=== PATIENT | male | born 1980 | race Caucasian/White ===

== ENCOUNTER → 2024-09-06 11:00 | Outpatient (REF) | payer OTHER, SELFPAY ==
[2024-09-08 11:39] LABS: Quantiferon Mitogen minus NIL 9.91 IU/mL; Quantiferon NIL 0.09 IU/mL; Quantiferon TB Gold Plus Negative (Negative)
== END ==
LOC: OHS 11:00
PROVIDERS: ATTENDING PHYSICIAN Nurse Practitioner Family
DX: Z23 Encounter for immunization (principal)
CPT/HCPCS: 36415; 86480